=== PATIENT | male | born 1990 | race Two or more races ===

== ENCOUNTER 2018-08-21 22:54 | Emergency (ER) | payer OTHER ==
[~2018-08-21] VITALS: Ht 170.2 cm; Wt 78.2 kg
[2018-08-21 22:57] VITALS: BP 146/71
[2018-08-21] MEDS ORDERED: PROPARACAINE OPHTH 0.5%, 15ML EACHEYE ONE (23:30)
[2018-08-21] MEDS ORDERED: FLUORESCEIN OPHTHALMIC 1 MG STRIP EACHEYE ONE (23:30)
[2018-08-21] MEDS ORDERED: PROPARACAINE OPHTH 0.5%, 15ML ONE (23:30)
[2018-08-22] MEDS ORDERED: EYE WASH SOLUTION 120ML ONE (00:02)
== END 2018-08-22 01:21 | disposition home or self-care (01) ==
LOC: ED 23:59
DX: T15.11XA Foreign body in conjunctival sac, right eye, initial encounter (principal); H10.31 Unspecified acute conjunctivitis, right eye; X58.XXXA Exposure to other specified factors, initial encounter; Y93.89 Activity, other specified; Y92.89 Other specified places as the place of occurrence of the external cause; Y99.8 Other external cause status
CPT/HCPCS: 99283